=== PATIENT | male | born 1945 | race Two or more races ===

== ENCOUNTER 2023-03-24 15:49 | Emergency (ER) | payer MEDICAID ==
[~2023-03-24] VITALS: Ht 177.8 cm; Wt 68.0 kg
[2023-03-24 15:54] VITALS: O2SAT 98
[2023-03-24 18:14] LABS: BASOPHILS % 0.2 % (0.0-2.0); HEMATOCRIT. 38.4 % (42.0-52.0); HEMOGLOBIN. 12.6 g/dL (14.0-18.0); LYMPHOCYTES % 8.1 % (20.0-50.0); MEAN CORPUSCULAR HEMOGLOBIN 28.2 pg (28.0-32.0); MEAN CORPUSCULAR HGB CONC 32.8 g/dL (31.0-37.0); MEAN CORPUSCULAR VOLUME 85.8 fL (80.0-94.0); MONOCYTES % 6.1 % (2.0-8.0); NEUTROPHILS % 85.6 % (40.0-76.0); PLATELET 180 x1000/uL (130-400); RED BLOOD CELL COUNT 4.47 mill/uL (4.7-6.1); RED CELL DISTRIBUTION WIDTH 14.2 % (11.6-14.6)
[2023-03-24 18:21] LABS: INR 1.2; PARTIAL THROMBOPLASTIN TIME 34.4 sec (23.4-31.0)
[2023-03-24 18:22] LABS: ALANINE AMINOTRANSFERASE 375 IU/L (10-49); ALBUMIN 4.3 g/dL (3.2-4.8); ASPARTATE AMINOTRANSFERASE 268 IU/L (<34); CALCIUM 9.2 mg/dL (8.7-10.4); CARBON DIOXIDE 16 mEq/L (21-32); CHLORIDE 102 mEq/L (98-107); CREATININE 0.7 mg/dL (0.6-1.3); GLUCOSE 134 mg/dL (70-105); POTASSIUM 3.9 mEq/L (3.5-5.1); PROTEIN TOTAL 7.7 g/dL (6.0-8.3); SODIUM 135 mEq/L (136-145); TROPONIN I HIGH SENSITIVITY 17 ng/L (3.0-53); UREA NITROGEN BLOOD 25 mg/dL (9-23)
[2023-03-24] MEDS ORDERED: SODIUM CHLORIDE 0.9% 1,000 ML IV ONE (18:30)
[2023-03-24] MEDS ORDERED: ASPIRIN 81MG TABLET PO ONE (18:30)
[2023-03-24] MEDS ORDERED: SODIUM CHLORIDE 0.9% 1000ML BAG (SEPSIS BOLUS) IV ONE (19:15)
[2023-03-24] MEDS ORDERED: VANCOMYCIN 1G PREMIX 200 ML IV ONE (19:15)
[2023-03-24] MEDS ORDERED: PIPERACILLIN/TAZO 3.375G/50ML 50 ML IV ONE (19:15)
[2023-03-24] MEDS ORDERED: ACETAMINOPHEN 325MG TABLET PO ONE (19:15)
[2023-03-24 19:57] LABS: CLARITY URINE CLEAR (CLEAR); COLOR URINE YELLOW (YELLOW); GLUCOSE URINE NEGATIVE (NEGATIVE); KETONES URINE 1+ (NEGATIVE); LEUKOCYTE ESTERASE URINE NEGATIVE (NEGATIVE); NITRITE URINE NEGATIVE (NEGATIVE); OCCULT BLOOD URINE 2+ (NEGATIVE); PROTEIN URINE 2+ (NEGATIVE); SPECIFIC GRAVITY URINE 1.051 (1.005-1.030)
[2023-03-24 20:14] LABS: BACTERIA URINE TRACE; SQUAMOUS EPITHELIAL CELL URINE RARE /lpf (RARE/1+); WBC URINE 0-2 /hpf (0-2)
[2023-03-24 20:36] LABS: LACTIC ACID 6.4 mmol/L (0.4-2.0)
[2023-03-24] MEDS ORDERED: ACETAMINOPHEN 325MG TABLET PO NR (21:30)
[2023-03-24] MEDS ORDERED: IOHEXOL-350 100 ML BOTTLE ONE (23:19)
[2023-03-25 00:04] VITALS: BP 140/75; PULSE 106; RESP 20; TEMP 98.9
== END 2023-03-24 23:48 | disposition short-term general hospital (02) ==
LOC: ER 15:49 → EDBEDREQ 18:04 → ER 23:48 → CANBEDREQ 03-26 21:22
DX: A41.9 Sepsis, unspecified organism (principal); R65.21 Severe sepsis with septic shock; R53.1 Weakness; E86.0 Dehydration; R50.9 Fever, unspecified; I10 Essential (primary) hypertension; Z86.73 Personal history of transient ischemic attack (TIA), and cerebral infarction without residual deficits; Z20.822 Contact with and (suspected) exposure to COVID-19
CPT/HCPCS: 80053; 81003; 82962; 83605; 85025; 85610; 85730; 86850; 86900; 86901; 87040; 87086; 87186; 84484; 87804 ×2; 87077; 36415; 71045; 70496; 70498; 70450; 93005; 96368; 96361; 96365; 96366; 99291; 87426; Q9967; Z7610 ×2; J2543; J3370; J7030